=== PATIENT | male | born 1990 | race Two or more races ===

== ENCOUNTER 2020-03-25 14:38 | Emergency (ER) | payer OTHER ==
[2020-03-25 14:45] VITALS: BP 109/69; PULSE 68; TEMP 98; BMI 32.1
[2020-03-25] MEDS ORDERED: ACETAMINOPHEN 325 MG TABLET (FP) PO ONE (14:56)
[2020-03-25] MEDS ORDERED: METOCLOPRAMIDE HCL INJECTION 10 MG/2 ML VIAL IVPB ONE (14:56)
--- NOTE | 2020-03-25 14:56 | PDOC ---
History of Present Illness - General History Source: Patient - History of Present Illness Associated Symptoms: reports: nausea/vomiting. denies: fever/chills <Alida Mendez - Last Filed: 03/27/20 10:22> <Shanice Katz - Last Filed: 03/28/20 20:35> - General Chief Complaint: Headache Stated Complaint: HEADACHE Time Seen by Provider: 03/25/20 14:52 Past History - Psycho-Social/Smoking History Smoking History: Never smoked Have you smoked in the past 12 months: No Information on smoking cessation initiated: No - Substance Abuse Hx (Audit-C & DAST Scrn) How often the patient has a drink containing alcohol: Never Score: In Men: 4 or > Positive; In Women: 3 or > Positive: 0 Screen Result (Pos requires Nsg. Audit-10AR): Negative In the last yr the pt used illegal drug/Rx for NonMed reason: No Score: Yes response is considered Positive: 0 Screen Result (Positive result requires Nsg. DAST-10): Negative <Alida Mendez - Last Filed: 03/27/20 10:22> <Shanice Katz - Last Filed: 03/28/20 20:35> - Medical History Allergies/Adverse Reactions: Allergies Allergy/AdvReac Type Severity Reaction Status Date / Time No Known Allergies Allergy Verified 03/25/20 14:45 Home Medications: Ambulatory Orders NK [No Known Home Medication] 03/25/20 Review of Systems - Review of Systems Constitutional: No: Chills, Fever HEENTM: No: Blurred Vision ABD/GI: Yes: Nausea, Vomiting Neurological: Yes: Headache. No: Numbness, Weakness, Dizziness <Alida Mendez - Last Filed: 03/27/20 10:22> *Physical Exam - Vital Signs Last Vital Signs Temp Pulse Resp BP Pulse Ox 98.0 F 68 18 109/69 99 03/25/20 14:42 03/25/20 14:42 03/25/20 14:42 03/25/20 14:42 03/25/20 14:42 - Physical Exam General Appearance: Yes: Appropriately Dressed. No: Apparent Distress HEENT: positive: Normal Voice Neck: positive: Supple Respiratory/Chest: negative: Respiratory Distress Integumentary: positive: Dry, Warm Neurologic: positive: nursery hand II-XII NML intact, Fully Oriented, Alert, Normal Mood/Affect, Motor Strength 5/5 <Alida Mendez - Last Filed: 03/27/20 10:22> - Vital Signs Last Vital Signs Temp Pulse Resp BP Pulse Ox 98.0 F 68 18 109/69 99 03/25/20 14:42 03/25/20 14:42 03/25/20 14:42 03/25/20 14:42 03/25/20 14:42 <Shanice Katz - Last Filed: 03/28/20 20:35> ED Treatment Course - Medications Given in the ED: ED Medications Discontinued Medications Generic Name Dose Route Start Last Admin Trade Name Donny PRN Reason Stop Dose Admin Acetaminophen 650 mg 03/25/20 14:56 03/25/20 15:12 Tylenol - PO 03/25/20 14:57 650 mg ONCE ONE Administration Metoclopramide HCl 10 mg 03/25/20 14:56 03/25/20 15:12 Reglan Injection - IVPB 03/25/20 14:57 10 mg ONCE ONE Administration <Shanice Katz - Last Filed: 03/28/20 20:35> Medical Decision Making - Medical Decision Making 03/25/20 14:52 29 yo M, no sig hx, here w/ MENDES. Pt reports mostly constant, b/l retro-orbital pain radiating to occiput and neck x 3 days. Unable to describe pain, 9/10 at its worse and worsens when looking up per pt. Had several episodes of nausea/vomiting this a.m. and feels nauseous currently. No dizziness, vertigo, URI symptoms, photophobia, fever or chills. No sudden onset MENDES and not worst in life. Has had headaches in the past but not this severe. Went to urgent care last night and currently taking advil w/ no relief see exam Acute onset MENDES w/ n/v No infection No trauma Neuro intact -IV reglan>reassess -consider CTH given multiple visits for med eval and severe nausea 03/25/20 15:52 Signed out to ERIN Patel pending CTH <Alida Mendez - Last Filed: 03/27/20 10:22> - Medical Decision Making The patient was seen and evaluated in conjunction with midlevel provider under my direct supervision, ancillary studies were reviewed. I agree with the plan as outlined with_CORTES Mendez. HPI, workup/dispo as outlined. VS reviewed, wnl. imaging medications, reassess 03/28/20 20:35 <Shanice Katz - Last Filed: 03/28/20 20:35> Discharge - Discharge Information Problems reviewed: Yes <Alida Mendez - Last Filed: 03/27/20 10:22> <Shanice Katz - Last Filed: 03/28/20 20:35> - Discharge Information Clinical Impression/Diagnosis: Headache Qualifiers: Headache type: unspecified Headache chronicity pattern: acute headache Intractability: intractable Qualified Code(s): R51 - Headache Nausea and vomiting Qualifiers: Vomiting type: unspecified Vomiting Intractability: non-intractable Qualified Code(s): R11.2 - Nausea with vomiting, unspecified Condition: Stable Disposition: HOME - Follow up/Referral Referrals: Valeriy Pugh MD [Staff Physician] - - Patient Discharge Instructions Additional Instructions: Take Tylenol or Motrin as needed for headaches. Keep a diary of all food to eat and activities performed prior to headaches starting. Make an appointment with your primary doctor for reevaluation within the next week. Referral for neurologist has been provided. Contact to schedule follow-up appoint evaluation of headaches. Return to emergency department for worsening headache, blurry vision, dizziness, nausea, vomiting or any other concerns. Thank you very much for for choosing us to provide emergent health care needs.
--- NOTE | 2020-03-25 16:16 | PDOC ---
*Physical Exam - Vital Signs Last Vital Signs Temp Pulse Resp BP Pulse Ox 98.0 F 68 18 109/69 99 03/25/20 14:42 03/25/20 14:42 03/25/20 14:42 03/25/20 14:42 03/25/20 14:42 ED Treatment Course - Medications Given in the ED: ED Medications Discontinued Medications Generic Name Dose Route Start Last Admin Trade Name Donny PRN Reason Stop Dose Admin Acetaminophen 650 mg 03/25/20 14:56 03/25/20 15:12 Tylenol - PO 03/25/20 14:57 650 mg ONCE ONE Administration Metoclopramide HCl 10 mg 03/25/20 14:56 03/25/20 15:12 Reglan Injection - IVPB 03/25/20 14:57 10 mg ONCE ONE Administration ED Progress Note - Progress Note Progress Note: 03/25/20 16:12 Briefly this is a 29-year-old male presents emergency department for evaluation of headache which is persisted over the past 3 days. Patient was seen and evaluated at urgent care yesterday and was given NSAID medication with moderate relief of symptoms. Patient with a normal neurologic exam but as he was nauseous received Reglan IV and is currently pending CT scan for disposition. Medical Decision Making - Medical Decision Making 03/25/20 16:50 CT scan is read by Dr. Call: Negative exam. No discrete noncontrast CT pathology is identified. Discharge home with follow-up I discussed the physical exam findings, ancillary test results and final diagnoses with the patient. I answered all of the patient's questions. The patient was satisfied with the care received and felt comfortable with the discharge plan and treatment plan. The patient will call their primary care physician within 24 hours to arrange follow-up and will return to the Emergency Department with any new, persistent or worsening symptoms. Portions of this note have been documented using voice recognition software. As a result, errors may occur in the tire care manager process. Effort has been made to correct all grammatical and tire care manager error, but some may have been missed which may produce sporadic inaccurate tire care manager or nonsensical phrases. Discharge - Discharge Information Problems reviewed: Yes Clinical Impression/Diagnosis: Headache Qualifiers: Headache type: unspecified Headache chronicity pattern: acute headache Intractability: intractable Qualified Code(s): R51 - Headache Nausea and vomiting Qualifiers: Vomiting type: unspecified Vomiting Intractability: non-intractable Qualified Code(s): R11.2 - Nausea with vomiting, unspecified Condition: Stable Disposition: HOME - Admission No - Follow up/Referral Referrals: Valeriy Pugh MD [Staff Physician] - - Patient Discharge Instructions Additional Instructions: Take Tylenol or Motrin as needed for headaches. Keep a diary of all food to eat and activities performed prior to headaches starting. Make an appointment with your primary doctor for reevaluation within the next week. Referral for neurologist has been provided. Contact to schedule follow-up appoint evaluation of headaches. Return to emergency department for worsening headache, blurry vision, dizziness, nausea, vomiting or any other concerns. Thank you very much for for choosing us to provide emergent health care needs. - Post Discharge Activity
== END 2020-03-25 17:25 | disposition home or self-care (01) ==
LOC: JER 14:38
PROC: 3E033NZ Introduction of Analgesics, Hypnotics, Sedatives into Peripheral Vein, Percutaneous Approach (ICD-10-PCS; principal; 2020-03-25)
DX: R51 Headache (principal); R11.2 Nausea with vomiting, unspecified
CPT/HCPCS: 70450-TC; 99284-25

== ENCOUNTER 2022-01-11 05:34 | Emergency (ER) | payer OTHER ==
[2022-01-11 05:50] VITALS: BP 146/94; PULSE 61; TEMP 98.4; BMI 32.5
[2022-01-11] MEDS ORDERED: KETOROLAC TROMETHAMINE 30 MG/1 ML VIAL IM ONE (07:49)
[2022-01-11] MEDS ORDERED: LIDOCAINE 5% TOPICAL PATCH TP ONE (07:49)
[2022-01-11] MEDS ORDERED: DEXAMETHASONE SOD PHOSPHATE 4 MG/1 ML VIAL IM ONE (08:26)
[2022-01-11] MEDS ORDERED: DEXAMETHASONE SOD PHOSPHATE 4 MG/1 ML VIAL ONE (09:12)
[2022-01-11] MEDS ORDERED: LIDOCAINE 5% TOPICAL PATCH ONE (09:13)
[2022-01-11] MEDS ORDERED: LIDOCAINE PATCH REMOVAL MC SCH (22:00)
== END 2022-01-11 10:45 | disposition home or self-care (01) ==
LOC: JER 05:34
PROC: 3E023GC Introduction of Other Therapeutic Substance into Muscle, Percutaneous Approach (ICD-10-PCS; principal; 2022-01-11)
DX: M54.41 Lumbago with sciatica, right side (principal)
CPT/HCPCS: 99284-25

== ENCOUNTER 2022-01-29 22:39 | Emergency (ER) | payer OTHER ==
[2022-01-29 22:46] VITALS: BP 136/88; PULSE 75; RESP 19; TEMP 98.6; BMI 31.5
[2022-01-29] MEDS ORDERED: KETOROLAC TROMETHAMINE 30 MG/1 ML VIAL IVPUSH ONE (23:48)
[2022-01-29] MEDS ORDERED: DEXAMETHASONE SOD PHOSPHATE 10 MG/1 ML VIAL IVPUSH ONE (23:48)
[2022-01-29] MEDS ORDERED: diazePAM CARPU-JECT 10 MG/2 ML DISP.SYRIN IVPUSH ONE (23:48)
[2022-01-29] MEDS ORDERED: ACETAMINOPHEN 1000 MG/100 ML BAG IVPB ONE (23:48)
[2022-01-29] MEDS ORDERED: LIDOCAINE 5% TOPICAL PATCH TP ONE (23:48)
[2022-01-29] MEDS ORDERED: diazePAM CARPU-JECT 10 MG/2 ML DISP.SYRIN ONE (23:57)
[2022-01-29] MEDS ORDERED: LIDOCAINE 5% TOPICAL PATCH ONE (23:58)
[2022-01-29] MEDS ORDERED: ACETAMINOPHEN INJECTION 100 ML IVPB ONE (23:58)
[2022-01-29] MEDS ORDERED: DEXAMETHASONE SOD PHOSPHATE 10 MG/1 ML VIAL ONE (23:58)
[2022-01-29] MEDS ORDERED: KETOROLAC TROMETHAMINE 30 MG/1 ML VIAL ONE (23:59)
[2022-01-30 00:44] LABS: BASO % 0.6 % (0-2.0); EOS % 2.1 % (0-4.5); HEMATOCRIT 43.2 % (35.4-49); HEMOGLOBIN 14.6 GM/dL (11.7-16.9); MCH 29.2 pg (25.7-33.7); MCHC 33.8 g/dl (32.0-35.9); MEAN CELL VOLUME 86.5 fl (80-96); MEAN PLT VOLUME 9.7 fl (7.5-11.1); MONO % 6.3 % (3.8-10.2); PLATELET COUNT 165 10^3/uL (134-434); RBC 4.99 M/mm3 (4.00-5.60); WHITE BLOOD COUNT 6.9 K/mm3 (4.0-10.0)
[2022-01-30 01:34] LABS: CALCIUM 8.8 mg/dL (8.5-10.1)
[2022-01-30 01:35] LABS: BLOOD UREA NITROGEN 22.4 mg/dL (7-18)
[2022-01-30 01:38] LABS: CREATININE 1.3 mg/dL (0.55-1.3)
[2022-01-30 01:39] LABS: BILIRUBIN,TOTAL 0.5 mg/dL (0.2-1)
[2022-01-30] MEDS ORDERED: LIDOCAINE PATCH REMOVAL MC ONE (12:00)
== END 2022-01-30 02:51 | disposition home or self-care (01) ==
LOC: JER 22:39
PROC: 3E033GC Introduction of Other Therapeutic Substance into Peripheral Vein, Percutaneous Approach (ICD-10-PCS; principal; 2022-01-29)
DX: M51.26 Other intervertebral disc displacement, lumbar region (principal); M54.31 Sciatica, right side
CPT/HCPCS: 36415; 72131-TC; 80053; 85025; 99285-25; J1100